=== PATIENT | female | born 1970 | race Caucasian/White ===

== ENCOUNTER 2021-01-11 10:33 | Outpatient (CLI) | payer MEDICAID | END 2021-01-11 10:34 | disposition critical access hospital (66) | LOC: EMS 10:33 | DX: R60.0 Localized edema (principal) | CPT/HCPCS: A0425; A0427 ==

== ENCOUNTER 2021-01-11 11:37 | Emergency (ER) | payer SELFPAY ==
--- NOTE | 2021-01-11 12:26 | ED Physician Documentation ---
History of Present Illness - Stated complaint Stated Complaint: LEG PX - Chief complaint Chief Complaint: Ext Problem - History obtained from History obtained from: Patient, EMS - Additonal information Additional information: 50 yo woman referred from urgant care. Went there for 4 days of burning R shoulder pain assoiciated with decreased ROM. Taking ibuprofen and aleve and after that developed swelling to ankles and hands. At urgent care noted to be tachycardic to 140. No assoc dyspnea, chest pain. Review of Systems Ten Systems: 10 systems reviewed and negative Constitutional: denies: Fever, Chills, Myalgias Cardiac: denies: Chest pain / pressure, Palpitations Respiratory: denies: Dyspnea, Cough PD PAST MEDICAL HISTORY - Present Medications Home Medications: Ambulatory Orders Medication Instructions Recorded Confirmed Acetaminophen [Tylenol] 1 - 2 tab PO DAILY PRN 01/11/21 01/11/21 Naproxen Sodium [Aleve] 1 - 2 tab PO BID PRN 01/11/21 01/11/21 oxyCODONE [Roxicodone] 5 mg PO Q4-6H PRN #20 tablet 01/11/21 - Allergies Allergies/Adverse Reactions: Allergies Allergy/AdvReac Type Severity Reaction Status Date / Time codeine AdvReac Unknown Verified 01/11/21 11:47 Penicillins AdvReac Rash Verified 01/11/21 11:47 PD ED PE NORMAL - Vitals Vital signs reviewed: Yes - General General: Alert and oriented X 3, No acute distress - HEENT HEENT: PERRL, EOMI - Neck Neck: Supple, no meningeal sign, No bony TTP - Cardiac Cardiac: No murmur, Other (tachy, regular) - Respiratory Respiratory: No respiratory distress, Clear bilaterally - Abdomen Abdomen: Non tender, Non distended - Back Back: No CVA TTP, No spinal TTP - Extremities Extremities: Other (2+ bilateral pitting edema, nontender, Severely decreased range of motion of the right shoulder. She can only abduct a few degrees, she does better with internal and external rotation but that is still very painful. Shoulder is diffusely tender mostly anteriorly, the joint is not red, or warm.) - Neuro Neuro: Alert and oriented X 3, Normal speech Results - Vitals Vitals: Vital Signs - 24 hr 01/11/21 01/11/21 01/11/21 11:35 13:00 13:09 Temperature 36.7 C Heart Rate 123 H 120 H 118 H Respiratory 23 23 18 Rate Blood Pressure 145/100 H 153/100 H 141/95 H O2 Saturation 98 98 99 Oxygen O2 Source Room air - EKG (time done) 1301 Rate: Rate (enter#) (120) Rhythm: Sinus tachycardia [place]: Normal Intervals: Normal [place] QRS: Normal Ischemia: Non specific changes. No: ST elevation c/w ischemia, ST depression - Labs Labs: Laboratory Tests 01/11/21 01/11/21 01/11/21 12:46 12:46 12:46 WBC 16.2 H RBC 4.05 L Hgb 13.8 Hct 41.1 MCV 101.5 H MCH 34.1 H MCHC 33.6 RDW 14.1 Plt Count 185 MPV 9.9 Neut # (Auto) 14.3 H Lymph # (Auto) 1.0 L [place] # (Auto) 0.7 Eos # (Auto) 0.0 Baso # (Auto) 0.0 Absolute Nucleated RBC 0.00 Nucleated RBC % 0.0 Sodium 132 L Potassium 3.2 L Chloride 90 L Carbon Dioxide 27 Anion Gap 15.0 H BUN 34 H Creatinine 1.0 Estimated GFR (MDRD) 58 L Glucose 131 H Calcium 8.2 L Total Bilirubin AST ALT Alkaline Phosphatase B-Natriuretic Peptide 93 Total Protein Albumin Globulin Albumin/Globulin Ratio Ethyl Alcohol < 5.0 01/11/21 13:12 WBC RBC Hgb Hct MCV MCH MCHC RDW Plt Count MPV Neut # (Auto) Lymph # (Auto) [place] # (Auto) Eos # (Auto) Baso # (Auto) Absolute Nucleated RBC Nucleated RBC % Sodium 131 L Potassium 3.2 L Chloride 89 L Carbon Dioxide 26 Anion Gap 16.0 H BUN 33 H Creatinine 1.0 Estimated GFR (MDRD) 58 L Glucose 126 H Calcium 8.4 L Total Bilirubin 2.2 H AST 38 ALT 115 H Alkaline Phosphatase 184 H B-Natriuretic Peptide Total Protein 6.2 L Albumin 2.5 L Globulin 3.7 Albumin/Globulin Ratio 0.7 L Ethyl Alcohol - Rads (name of study) X-rays of the right shoulder and chest demonstrate calcific tendinopathy and AC joint osteoarthritis as well as bibasilar linear densities Radiology: EMP read contemporaneously PD MEDICAL DECISION MAKING - ED course ED course: 50-year-old woman presents with edema and right shoulder pain. The right shoulder pain seems very much musculoskeletal. Labs notable for significant electrolyte imbalances, mild hepatitis of unclear acuity. States she has never been tested for hepatitis C. Has no right upper quadrant pain or tenderness. Offered continued work-up in the ED, but suspect this may be chronic and she opted for outpatient work-up. Departure - Departure Disposition: 01 Home, Self Care Clinical Impression: Shoulder arthritis, Hypokalemia, Elevated liver enzymes Condition: Stable Record reviewed to determine appropriate education?: Yes Instructions: Hypokalemia Dc, Arthritis Acromioclavicular Follow-Up: Neetu Ludwig ARNP [Physician No Access] - Prescriptions: oxyCODONE [Roxicodone] 5 mg PO Q4-6H PRN #20 tablet PRN Reason: Pain Comments: Prescription sent electronically to [facility] in [place]. Follow-up with primary care physician listed on this form, call today for an appointment. I am prescribing a short course of narcotic pain medication for you. These are potentially dangerous and addictive medications that should be used carefully. These medications may constipate you. Take an mngx-agu-vtoapmn stool softener (docusate) twice daily with plenty of water while taking these medications. If you go 24 hours without a bowel movement, take kvmd-nbb-ivlthaz miralax, per package instructions. Do not drink or drive while taking these medications. If you received narcotic or sedating medications while in the emergency department, do not drive for 24 hours. Store this medication in a safe, secure place and out of reach of children. It is a violation of federal law to give or sell this medication to another person or to use in a manner other than prescribed. The ED will not refill narcotic prescriptions, including prescriptions lost or stolen. To dispose of unwanted medications: 1. [facility] [address] in [place] has a medication drop box. They accept prescription medications (in pill form) Thursday through Thursday 9:00 a.m. to 5:00 p.m. 2. The [facility] [employer] accepts prescription medications (in pill form only) for disposal year round. Call for more information. 3. Contact the [facility] for the next [facility] sponsored prescription drug collection event. , [phone], or [phone]; Note that many narcotic pain relievers also contain Tylenol/acetaminophen. Please ensure that your total dose of acetaminophen from all sources does not exceed 3 g (3000 mg) per day.
[2021-01-11] MEDS ORDERED: HYDROmorphone 1 MG/ML CARPUJECT IVP STA (12:33)
[2021-01-11 12:56] LABS: EOSINOPHILS % (AUTO) 0.2 %; HCT - HEMATOCRIT 41.1 % (37.0-47.0); HGB - HEMOGLOBIN 13.8 g/dL (12.0-16.0); LYMPHOCYTES % (AUTO) 6.4 %; MEAN CORPUSCULAR HEMOGLOBIN 34.1 pg (27.0-31.0); MEAN CORPUSCULAR HGB CONC 33.6 g/dL (32.0-36.0); MEAN CORPUSCULAR VOLUME 101.5 fL (81.0-99.0); MEAN PLATELET VOLUME 9.9 fL (7.9-10.8); MONOCYTES # (AUTO) 0.7 10^3/uL (0.0-1.0); MONOCYTES % (AUTO) 4.3 %; NEUTROPHILS # (AUTO) 14.3 10^3/uL (1.5-6.6); NEUTROPHILS % (AUTO) 88.4 %; PLT - PLATELET COUNT 185 10^3/uL (130-450); RED BLOOD COUNT 4.05 10^6/uL (4.20-5.40); RED CELL DISTRIBUTION WIDTH 14.1 % (12.0-15.0); WHITE BLOOD COUNT 16.2 x10^3/uL (4.8-10.8)
[2021-01-11 13:11] LABS: BUN - BLOOD UREA NITROGEN 34 mg/dL (6-20); CALCIUM 8.2 mg/dL (8.5-10.3); CARBON DIOXIDE - CO2 27 mmol/L (21-32); CHLORIDE 90 mmol/L (101-111); ETOH - ETHANOL < 5.0 mg/dL; GFR - MDRD 58 (>89); GLUCOSE 131 mg/dL (70-100); POTASSIUM 3.2 mmol/L (3.5-5.0); SODIUM 132 mmol/L (135-145)
[2021-01-11] MEDS ORDERED: POTASSIUM CHLOR 10 MEQ/100 ML 10 MEQ/100 ML BAG IV STA (13:12)
[2021-01-11] MEDS ORDERED: SODIUM CHLORIDE 0.9% 1,000 ML IV STA (13:12)
[2021-01-11 13:29] LABS: ALBUMIN 2.5 g/dL (3.2-5.5); ALBUMIN/GLOBULIN RATIO 0.7 (1.0-2.2); BILIRUBIN,TOTAL 2.2 mg/dL (0.2-1.0); CALCIUM 8.4 mg/dL (8.5-10.3); POTASSIUM 3.2 mmol/L (3.5-5.0); TOTAL PROTEIN 6.2 g/dL (6.7-8.2)
--- NOTE | 2021-01-11 13:38 | XRAY Report ---
PROCEDURE: Chest 2 View X-Ray INDICATIONS: tachycardia, shoulder pain TECHNIQUE: 2 view(s) of the chest. COMPARISON: None. FINDINGS: SUPPORT DEVICES: None. LUNG/PLEURA: Bibasilar linear densities are seen. No pleural effusion or space-occupying pneumothorax . MEDIASTINUM: The cardiomediastinal silhouette is within normal limits. BONES/SOFT TISSUES: No acute abnormality. IMPRESSION: 1.Bibasilar linear densities, which may reflect atelectasis and/or scarring. Reviewed by: Austin Nicole MD on 01/11/2021 1:37 PM PDT Approved by: Austin Nicole MD on 01/11/2021 1:37 PM PDT Station ID: [id number]
--- NOTE | 2021-01-11 13:40 | XRAY Report ---
PROCEDURE: Shoulder 3 View RT INDICATIONS: tachycardia, shoulder pain TECHNIQUE: 3 views of the shoulder were acquired. COMPARISON: None. FINDINGS: BONES: No acute, displaced fracture or dislocation. Osteophytosis extending from the inferior aspect of the humeral head. A 6.3 mm intervertebral body is seen. Hlhz-bb-ftzpsmmo arthrosis of the AC joint with joint space narrowing. SOFT TISSUES: No focal abnormality or appreciable pneumothorax. Small calcification adjacent to the a cromion, which may reflect deltoid calcific tendinopathy. IMPRESSION: 1.No acute osseous abnormality. Reviewed by: Austin Nicoel MD on 01/11/2021 1:39 PM PDT Approved by: Austin Nicole MD on 01/11/2021 1:39 PM PDT Station ID: [id number]
[2021-01-11 14:16] VITALS: BP 165/137
== END 2021-01-11 14:43 | disposition home or self-care (01) ==
LOC: ED 11:37
DX: M19.011 Primary osteoarthritis, right shoulder (principal); M75.31 Calcific tendinitis of right shoulder; E87.6 Hypokalemia; R60.0 Localized edema; R74.8 Abnormal levels of other serum enzymes; K75.9 Inflammatory liver disease, unspecified; J98.4 Other disorders of lung
CPT/HCPCS: 36415; 71046; 73030; 80048; 80053; 80320; 83880; 85025; 93005; 96365; 96375; 99284; J1170

== ENCOUNTER 2021-01-20 05:58 | Outpatient (CLI) | payer MEDICAID | END 2021-01-20 05:59 | disposition critical access hospital (66) | LOC: EMS 05:58 | DX: R53.1 Weakness (principal); R60.0 Localized edema | CPT/HCPCS: A0425; A0429 ==

== ENCOUNTER 2021-01-20 06:35 | Emergency (ER) | payer SELFPAY ==
[2021-01-20] MEDS ORDERED: KETOROLAC 15 MG/ML VIAL IVP STA (06:41)
[2021-01-20] MEDS ORDERED: HYDROmorphone 1 MG/ML CARPUJECT IVP STA ×2 (07:42→10:18)
[2021-01-20] MEDS ORDERED: METOPROLOL TARTRATE 50 MG TABLET PO STA (08:16)
[2021-01-20] MEDS ORDERED: LORazepam 1 MG TABLET PO STA (08:17)
[2021-01-20 08:28] LABS: BASOPHILS % (AUTO) 1.3 %; HCT - HEMATOCRIT 26.9 % (37.0-47.0); HGB - HEMOGLOBIN 9.2 g/dL (12.0-16.0); LYMPHOCYTES % (AUTO) 19.6 %; MEAN CORPUSCULAR HEMOGLOBIN 34.3 pg (27.0-31.0); MEAN CORPUSCULAR HGB CONC 34.2 g/dL (32.0-36.0); MEAN CORPUSCULAR VOLUME 100.4 fL (81.0-99.0); MEAN PLATELET VOLUME 10.6 fL (7.9-10.8); MONOCYTES % (AUTO) 9.2 %; NEUTROPHILS % (AUTO) 66.9 %; PLT - PLATELET COUNT 422 10^3/uL (130-450); RED BLOOD COUNT 2.68 10^6/uL (4.20-5.40); RED CELL DISTRIBUTION WIDTH 13.7 % (12.0-15.0); WHITE BLOOD COUNT 6.3 x10^3/uL (4.8-10.8)
[2021-01-20 08:36] LABS: ABNORMAL LYMPHS % (MANUAL) 0 %
[2021-01-20 08:37] LABS: ALBUMIN 2.2 g/dL (3.2-5.5); ALBUMIN/GLOBULIN RATIO 0.5 (1.0-2.2); CALCIUM 8.6 mg/dL (8.5-10.3); CREATININE 0.7 mg/dL (0.4-1.0); POTASSIUM 4.2 mmol/L (3.5-5.0); TOTAL PROTEIN 6.5 g/dL (6.7-8.2)
[2021-01-20 08:56] LABS: BAND NEUTROPHILS % (MANUAL) 3 %; BASOPHILS # (MANUAL) 0.1 10^3/uL (0-0.1); BASOPHILS % (MANUAL) 1 %; LYMPHOCYTES # (MANUAL) 1.1 10^3/uL (1.5-3.5); LYMPHOCYTES % (MANUAL) 18 %; MONOCYTES # (MANUAL) 1.1 10^3/uL (0.0-1.0); PLATELET ESTIMATE, MANUAL NORMAL (130-450,000) (NORMAL); PLATELET MORPHOLOGY NORMAL APPEARANCE (NORMAL); RBC MORPHOLOGY (MULTIPLE) 1+ HYPOCHROMASIA (NORMAL)
[2021-01-20 08:57] LABS: DIFFERENTIAL COMMENT MANUAL DIFFERENTIAL
--- NOTE | 2021-01-20 10:09 | Ultrasound Report ---
PROCEDURE: Duplex Ext Veins Right INDICATIONS: swelling RUE TECHNIQUE: Real-time imaging, as well as color and pulse Doppler interrogation, were performed of the right uppe r extremity. COMPARISON: None. FINDINGS: The deep veins are normally compressible, and free of intraluminal thrombus. Color and pu lse Doppler demonstrate normal phasic intraluminal flow. There is normal augmentation response to di stal compression maneuver. This study is limited by body habitus. This study is also limited by the patient's inability to coop erate with the examination. IMPRESSION: No findings of deep venous thrombosis are seen. Note: Concordant preliminary findings given by the diesel truck crane operator upon the completion of the examination to Dr. Mosqueda at 10:00 AM on 01/20/2021. Reviewed by: Devaughn Greene MD on 01/20/2021 9:08 AM TRACE Approved by: Devaughn Greene MD on 01/20/2021 9:08 AM TRACE Station ID: [id number]
[2021-01-20] MEDS ORDERED: DEXAMETHASONE 10 MG/ML VIAL IV STA (10:18)
--- NOTE | 2021-01-20 10:25 | ED Physician Documentation ---
History of Present Illness - Stated complaint Stated Complaint: GLF/ARM INJURY - Chief complaint Chief Complaint: Wound - History obtained from History obtained from: Patient - Additonal information Additional information: Patient comes emergency department for chief complaint of right shoulder pain. She states that this is been going on for some time, though the exact duration is unclear. She was seen approximately week and a half ago in her ED for the same problem and at that time, x-rays were negative. She states that this morning, she accidentally rolled off the couch where she was sleeping, and feels as though she landed on that side. She states she could not sleep after that and so she decided to come in. Patient denies any chest pain or shortness of breath. No palpitations. She was sent to the ED last time she had the shoulder pain, because she had gone to urgent care and they found her to have a heart rate around 140. As such, she was sent here. At that point in time, she was found to have sinus tachycardia which should come down to a rate of 120 by the time she got here. Work-up was unremarkable, and patient was discharged home. She denies any history of any cardiac issues that she knows of. She has not seen her primary care physician or a distribution operation supervisor since last time she was seen. Patient does also note that her right arm has been edematous for the last sarah ral days and that she has also had edema of her bilateral lower legs. Review of Systems Ten Systems: 10 systems reviewed and negative Constitutional: reports: Reviewed and negative Eyes: reports: Reviewed and negative Ears: reports: Reviewed and negative Nose: reports: Reviewed and negative Throat: reports: Reviewed and negative Cardiac: reports: Reviewed and negative Respiratory: reports: Reviewed and negative GI: reports: Reviewed and negative : reports: Reviewed and negative Skin: reports: Reviewed and negative Musculoskeletal: reports: Joint pain, Extremity swelling Neurologic: reports: Reviewed and negative Psychiatric: reports: Reviewed and negative Endocrine: reports: Reviewed and negative Immunocompromised: reports: Reviewed and negative PD PAST MEDICAL HISTORY - Past Medical History Past Medical History: Yes Other Past Medical History: Induced HTN - Past Surgical History Past Surgical History: No - Present Medications Home Medications: Ambulatory Orders Medication Instructions Recorded Confirmed Metoprolol Succinate [Toprol Xl] 25 mg PO BID #60 tablet 01/20/21 - Allergies Allergies/Adverse Reactions: Allergies Allergy/AdvReac Type Severity Reaction Status Date / Time codeine AdvReac Unknown Verified 01/20/21 06:52 Penicillins AdvReac Rash Verified 01/20/21 06:52 - Social History Does the pt smoke?: Yes Smoking Status: Current every day smoker Does the pt drink ETOH?: Yes ETOH Use: Wine, Liquor Does the pt have substance abuse?: No - Immunizations Immunizations are current?: Yes - POLST Patient has POLST: No PD ED PE NORMAL - Vitals Vital signs reviewed: Yes - General General: Alert and oriented X 3, No acute distress, Well developed/nourished - HEENT HEENT: Atraumatic, PERRL, EOMI, Moist mucous membranes - Neck Neck: Supple, no meningeal sign - Cardiac Cardiac: Strong equal pulses, Other (Tachycardic rate, regular rhythm, 2/6 systolic murmur) - Respiratory Respiratory: No respiratory distress, Clear bilaterally - Abdomen Abdomen: Soft, Non tender, Non distended - Derm Derm: Normal color, Warm and dry, No rash, Other (No skin trauma) - Extremities Extremities: No deformity, Other (Global tenderness palpation right shoulder without deformity. Significantly limited range of motion secondary to pain. No contusion. No induration. No crepitus. No cords. Marked pitting edema of right upper and lower extremities and left lower extremity.) - Neuro Neuro: Alert and oriented X 3, para professional 2-12 intact, No motor deficit, No sensory deficit, Normal speech - Psych Psych: Normal mood, Normal affect Results - Vitals Vitals: Vital Signs - 24 hr 01/20/21 01/20/21 01/20/21 06:40 07:28 10:47 Temperature 36.6 C 36.7 C Heart Rate 143 H 146 H 106 H Respiratory 18 25 H 21 Rate Blood Pressure 144/111 H 144/111 H 105/69 O2 Saturation 96 100 97 01/20/21 12:30 Temperature Heart Rate 95 Respiratory 17 Rate Blood Pressure 106/72 O2 Saturation 96 Oxygen O2 Source Room air - EKG (time done) No standard instances Rate: Tachy Rhythm: Sinus tachycardia [place]: Normal Intervals: Normal [place] QRS: Normal Ischemia: Normal ST segments Compare to prior EKG: Changed from prior EKG (rate only; both sinus tachycardia) Computer interpretation: Agree with computer - Labs Labs: Microbiology 01/20/21 07:05 Wound Culture - Preliminary Breast - Right Laboratory Tests 01/20/21 01/20/21 01/20/21 08:15 08:15 08:15 WBC 6.3 RBC 2.68 L Hgb 9.2 L Hct 26.9 L MCV 100.4 H MCH 34.3 H MCHC 34.2 RDW 13.7 Plt Count 422 MPV 10.6 Neut # (Auto) Not Reportable Lymph # (Auto) Not Reportable [place] # (Auto) Not Reportable Eos # (Auto) Not Reportable Baso # (Auto) Not Reportable Absolute Nucleated RBC Not Reportable Total Counted 100 Band Neuts % (Manual) 3 Abnorm Lymph % (Manual) 0 Nucleated RBC % Not Reportable Neutrophils # (Manual) 4.0 Lymphocytes # (Manual) 1.1 L Monocytes # (Manual) 1.1 H Eosinophils # (Manual) 0.0 Basophils # (Manual) 0.1 Differential Comment MANUAL DIFFERENTIAL Platelet Estimate NORMAL (130-450,000) Platelet Morphology NORMAL APPEARANCE RBC Morph Micro Appear 1+ HYPOCHROMASIA Sodium 123 L Potassium 4.2 Chloride 82 L Carbon Dioxide 22 Anion Gap 19.0 H BUN 27 H Creatinine 0.7 Estimated GFR (MDRD) 88 L Glucose 152 H Calcium 8.6 Total Bilirubin 2.0 H AST 34 ALT 33 Alkaline Phosphatase 149 H B-Natriuretic Peptide 82 Total Protein 6.5 L Albumin 2.2 L Globulin 4.3 H Albumin/Globulin Ratio 0.5 L Lipase 22 - Rads (name of study) Right upper extremity ultrasound Radiology: Final report received, EMP read indepedently, See rad report (Negative) PD MEDICAL DECISION MAKING - ED course Complexity details: reviewed old records, reviewed results, re-evaluated patient, considered differential, d/w patient ED course: Despite the many issues the patient seemed to have, she stated she was really just here for the pain in her right shoulder. However, it was concerned about the edema and the tachycardia as well as the recent fall in light of the shoulder pain. I did review the patient's records and found the patient had been seen about a week and a half ago and did indeed have negative x-ray series of her right shoulder. She had been found to be significantly tachycardic, but it did not appear that this was specifically treated, perhaps because the patient's tachycardia had improved between her visit to the urgent care and to the emergency department. EKG today showed sinus tachycardia. The patient seemed dismissive of the tachycardia, stating that she thought her heart rate was up because she felt anxious because the pain in her shoulder. The patient had extremely difficult peripheral access, but ultimately, nursing staff was able to get an IV. Patient was treated for her pain. She was also given oral metoprolol and Ativan and between these things, her heart rate actually came down significantly to the 1 teens. The patient refused to repeat x-rays of her right shoulder, despite the fact that she had fallen off the couch. She stated she did not think that she had acutely injured the shoulder and that it was already hurting like that before she fell. Ultrasound was performed of the patient's right upper extremity to assess for DVT and this was negative. Laboratory studies showed a normal BNP, and a very low albumin and protein. I suspected this was likely the cause of the patient's swelling. I discussed all of the above with the patient. I have advised her that it is important for her to follow-up with her doctor soon as possible to talk about wearing an event monitor for her tachycardia and determining whether she needs a cardiology referral. We have discussed drinking plenty of fluids to help avoid further episodes of tachycardia, and patient states that she has actually been drinking a lot of water. I have also discussed with her the potential need for ort hopedics consultation if her shoulder pain continues, and have advised her of the importance of following up with her doctor as well. We have discussed the usual indications for return. Departure - Departure Disposition: 01 Home, Self Care Clinical Impression: Edema due to hypoalbuminemia, Sinus tachycardia Shoulder pain Qualifiers: Chronicity: chronic Laterality: right Qualified Code(s): M25.511 - Pain in right shoulder Condition: Stable Instructions: Tachycardia, ED Shoulder Pain [facility] Prescriptions: Metoprolol Succinate [Toprol Xl] 25 mg PO BID #60 tablet Comments: Your labs do not show any problems with your heart itself, though your heart rate was found to be significantly elevated once again today. You have been found to have a low protein state and your blood, and this is likely the cause of the swelling you are having throughout your body. It is not clear why you continue to have the shoulder pain. You have declined to have repeat x-rays done today, so it is not clear whether any further injury occurred when you fell off the couch. However, your x-rays from approximately a week and a half ago were negative. It is very important that you follow-up with your primary doctor for all of these issues. With the elevated heart rate, it is very important to drink plenty of fluids, but you also need to talk with your doctor about what steps to take next. This can include wearing an event monitor to further evaluate when and how often your heart rate is going high, as well as how high it is going and how long it is lasting. This will determine whether you need to be on chronic medication or whether you need to follow-up with a distribution operation supervisor. We will start you on a medicine today to help with the elevated heart rate until you can see your doctor. If you develop chest pain or shortness of breath, you should return to the emergency department immediately. Discharge Date/Time: 01/20/21 13:22
[2021-01-20 12:55] VITALS: BP 106/72
== END 2021-01-20 13:22 | disposition home or self-care (01) ==
LOC: EDUNIT# → ED 06:35
DX: M25.511 Pain in right shoulder (principal); E88.09 Other disorders of plasma-protein metabolism, not elsewhere classified; R00.0 Tachycardia, unspecified; R60.0 Localized edema
CPT/HCPCS: 36415; 80053; 83690; 83880; 85025; 87070; 87205; 93005; 93971; 96374; 96375; 96376; 99284; A9270; J1170; J8499

== ENCOUNTER 2021-01-21 15:26 | Outpatient (CLI) | payer MEDICAID | END 2021-01-21 15:27 | disposition short-term general hospital (02) | LOC: EMS 15:26 | DX: R53.1 Weakness (principal); R60.0 Localized edema | CPT/HCPCS: A0425; A0427 ==